=== PATIENT | female | born 1975 | race Caucasian/White ===

== ENCOUNTER 2018-06-20 08:26 | Day surgery (SDC) | payer OTHER ==
[~2018-06-20] VITALS: Ht 172.7 cm; Wt 92.5 kg
[~2018-06-20 08:26] MED LIST: GLYCOPYRROLATE INJ 0.2 MG/ML 2 ML VIAL As Ordered ONE; KETOROLAC 60 MG/2 ML VIAL (J1885) As Ordered ONE; LIDOCAINE 2% INJ 100 MG/5 ML SDV (FOR ANES.) As Ordered ONE; LR 1,000 ML IV ONE; MIDAZOLAM INJ 2 MG/2 ML VIAL (J2250) As Ordered ONE; NEOSTIGMINE 10 MG/10 ML VIAL (J2710) As Ordered ONE; ONDANSETRON 4MG/2ML VIAL (J2405) As Ordered ONE; PROPOFOL 200 MG/20 ML VIAL As Ordered ONE; ROCURONIUM BROMIDE 50 MG/5 ML VIAL As Ordered ONE; dexameTHASONE 4 MG/ML 1ML VIAL (J1100) As Ordered ONE; fentaNYL 100 MCG/2 ML INJECTION (J3010) As Ordered ONE
[2018-06-20 08:56] LABS: HEMATOCRIT 37.1 % (36.0-47.0); HEMOGLOBIN 11.4 g/dl (12.0-15.5); MEAN CORPUSCULAR HEMOGLOBIN 23.9 pg (27.0-33.0); MEAN CORPUSCULAR HGB CONC 30.7 g/dl (32.0-36.5); MEAN CORPUSCULAR VOLUME 77.8 fl (80.0-96.0); PLATELET COUNT, AUTOMATED 262 10^3/uL (150-450); RED BLOOD COUNT 4.77 10^6/uL (4.00-5.40); WHITE BLOOD COUNT 6.9 10^3/uL (4.0-10.0)
[2018-06-20] MEDS ORDERED: HYDROmorphone HCL 2 MG/ML 1ML VIAL (J1170) As Ordered ONE (09:02)
[2018-06-20] MEDS ORDERED: SCOPOLAMINE 1MG TRANSDERMAL PATCH As Ordered ONE (09:12)
[2018-06-20] MEDS ORDERED: SCOPOLAMINE 1MG TRANSDERMAL PATCH TOP ONE (09:15)
[2018-06-20 09:17] LABS: URINE PREG TEST NEGATIVE (NEGATIVE)
[2018-06-20] MEDS ORDERED: ROCURONIUM BROMIDE 50 MG/5 ML VIAL As Ordered ONE (12:24)
[2018-06-20] MEDS ORDERED: ONDANSETRON 4MG/2ML VIAL (J2405) IV PRN (13:45)
[2018-06-20] MEDS ORDERED: EPIDURAL/PCA KEYS XX PRN (13:45)
[2018-06-20] MEDS ORDERED: IBUPROFEN 600 MG TAB PO PRN ×2 (13:45→19:00)
[2018-06-20] MEDS ORDERED: fentaNYL 100 MCG/2 ML INJECTION (J3010) IV PRN (13:45)
[2018-06-20] MEDS ORDERED: NALOXONE INJ 0.4 MG/1 ML VIAL (J2310) IV PRN (13:45)
[2018-06-20] MEDS ORDERED: MORPHINE 1MG/ML IN 0.9% NACL 100ML IV BAG IV PRN (13:45)
[2018-06-20] MEDS ORDERED: diphenhydrAMINE INJ 50MG/ML VIAL (J1200) IV PRN (13:45)
[2018-06-20] MEDS ORDERED: NALBUPHINE HCL 10 MG/ML AMP (J2300) IV PRN (13:45)
[2018-06-20] MEDS ORDERED: NORCO, ANEXSIA 5/325MG TABLET (HYDROcodone/ACETAMINOPHEN) PO PRN (13:45)
[2018-06-20] MEDS ORDERED: NALOXONE INJ 0.4 MG/1 ML VIAL (J2310) IV SCH (15:30)
[2018-06-20 15:35] VITALS: BP 135/103
[2018-06-20 16:00] VITALS: BP 160/99
[2018-06-20 16:30] VITALS: BP 142/96
[2018-06-20 17:30] VITALS: BP 152/96
[2018-06-20 18:30] VITALS: BP 146/92
[2018-06-20] MEDS: LR 1,000 ML IV SCH (19:47)
[2018-06-20 22:00] VITALS: BP 149/99
[2018-06-21 01:00] VITALS: BP 150/92
[2018-06-21] MEDS ORDERED: PROMETHAZINE 25 MG TAB PO ONE (01:30)
[2018-06-21 02:30] VITALS: BP 156/96
[2018-06-21] MEDS ORDERED: PROMETHAZINE INJ 25 MG/ML VIAL (J2550) IV ONE (03:00)
[2018-06-21] MEDS: LR 1,000 ML IV SCH (03:45)
[2018-06-21] MEDS ORDERED: NORCO, ANEXSIA 5/325MG TABLET (HYDROcodone/ACETAMINOPHEN) PO PRN (06:00)
[2018-06-21 06:15] VITALS: BP 166/85
[2018-06-21 08:00] VITALS: BP 134/91
[2018-06-21] MEDS ORDERED: NORC1TAB7 PO (09:31)
[2018-06-21] MEDS ORDERED: ADVI100T PO (09:31)
--- NOTE | 2018-06-21 17:13 | RO ---
DATE OF PROCEDURE: 06/20/2018 PREOPERATIVE DIAGNOSIS: Bleeding and pain. POSTOPERATIVE DIAGNOSIS: Bleeding and pain. Fibroids. The uterus weighed 238 grams in the operating room. PROCEDURE: Laparoscopic-assisted vaginal hysterectomy with bilateral salpingo-oophorectomy. SURGEON: Dr. Elsa Ambrocio BUS DRIVER: Ruma Tillman ANESTHESIA: General endotracheal anesthesia. DESCRIPTION OF PROCEDURE: Shayla was brought to the operating room where sufficient general endotracheal anesthesia was induced, and she was prepped, draped and positioned in the usual sterile fashion with the uterine manipulator placed after the uterus had been sounded to 10 and, of course, the Velasquez with the ability to backfill placed. Attention was then turned to the abdomen. A transverse semilunar incision was made below the umbilicus. Sharp and blunt dissection were continued through the subcutaneous tissues to the level of the rectus fascia where a transverse incision was made. The fascia was secured with #0 Vicryl retention sutures. She had a well-developed posterior rectus sheath, so this too was secured with the #0 Vicryl retention sutures, and the peritoneum was entered under direct visualization in an open laparoscopic technique with the Gretchen cannula then placed and secured with the #0 Vicryl retention sutures and CO2 insufflation then begun. After adequate CO2 insufflation, the peritoneal cavity was visualized. There were normal shiny peritoneal surfaces throughout. There was no excrescence, ascites, nor exudate. There were some adhesions on the left side, which are pictured, and these were taken down with the cold scissors. With that and Trendelenburg, the intestines were mobilized out of the way, and the uterine manipulator used to elevate the uterus and then the Enseal articulating dissector was used through the operative port of the laparoscope to isolate, cauterize, and transect the infundibulopelvic ligament, starting first on the left side, then going to the right. We carefully worked our way through the ovarian pedicles to the round ligament to carefully transect it. We then used cold scissors to dissect the bladder flap anteriorly and having reached the level of the uterine vasculature, we stopped working laparoscopically and turned our attention to the vaginal portion of the case. We turned off the CO2, removed the laparoscope, etcetera, and, of course, removed the patient from that steep Trendelenburg. Working vaginally, with the uterine manipulator removed, we grasped the cervix with two single-tooth tenacula and made a circumferential incision around the base of the cervix using the scalpel. The cardinal ligaments were isolated, clamped with De Stevens clamps, transected and ligated with #0 Vicryl suture. We then progressed through the uterosacral ligaments, which were held for later reattachment to the cuff and dissected anteriorly to join up with the bladder flap and posteriorly for the posterior reflection of the peritoneum. Then, carefully dissected along the lateral aspect of the uterus until the uterus with the attached ovaries and tubes could be delivered. The uterus was large enough with its fibroids that when we got the ovary down with the uterus, the right ovary, we could not see well, so we just transected the ovary and removed it separate from the uterus. Then, we began to have difficulty seeing the pedicle and we started to transect the uterus, but as we were transecting, it delivered through the vaginal cuff and we were able to partially Doderlein it and complete the rest of the dissection. So, the uterus with that partial transection, which did confirm the diagnosis of fibroid, and the attached tubes, and the attached left ovary were sent to pathology. We then carefully examined our pedicles and had good hemostasis. Angle stitches of #0 Vicryl were taken, the uterosacrals were, of course, reattached to the cuff, and the cuff closed with a running locked stitch of #0 Vicryl with good approximation and hemostasis achieved. Since we had already confirmed good hemostasis, we went ahead and removed the instruments above, closed the fascial incision at the umbilicus with the #0 Vicryl retention sutures, and closed the skin with a subcuticular stitch of #3-0 Vicryl with good approximation and hemostasis achieved at both layers, and, of course, a dry sterile dressing then applied. She was switched out from the Velasquez with the ability to backfill to a regular Velasquez bag, and the procedure ended. Estimated blood loss for the procedure: About 300 mL. Fluid replacement was crystalloid. Complications: None. Specimen: Uterus, ovaries, and tubes, as we already mentioned, the uterus was weighed in the OR and weighed 238 grams. Condition and Disposition: Shayla tolerated the procedure well and was recovering in the recovery room in good condition.
== END 2018-06-21 11:25 | disposition home or self-care (01) ==
LOC: M SDC 08:26 → MERGE 14:45 → M MSPAV 15:23 → M PED 06-21 02:10 → M SDC 06-21 11:25
PROVIDERS: ATTEND Obstetrics & Gynecology
DX: N93.9 Abnormal uterine and vaginal bleeding, unspecified (principal); D25.1 Intramural leiomyoma of uterus; N83.11 Corpus luteum cyst of right ovary; N83.12 Corpus luteum cyst of left ovary; R10.2 Pelvic and perineal pain; G43.909 Migraine, unspecified, not intractable, without status migrainosus
CPT/HCPCS: 36415; 58552; 84703; 85027; 86850; 86900; 86901; 88307; J0690; J1100; J1170; J1885; J2250; J2310; J2405; J2710; J3010

== ENCOUNTER → 2022-01-30 | Outpatient (CLI) | payer OTHER ==
[~2022-01-30] MED LIST changes: +ADVI100T PO; -GLYCOPYRROLATE INJ 0.2 MG/ML 2 ML VIAL As Ordered ONE; -KETOROLAC 60 MG/2 ML VIAL (J1885) As Ordered ONE; -LIDOCAINE 2% INJ 100 MG/5 ML SDV (FOR ANES.) As Ordered ONE; -LR 1,000 ML IV ONE; -MIDAZOLAM INJ 2 MG/2 ML VIAL (J2250) As Ordered ONE; -NEOSTIGMINE 10 MG/10 ML VIAL (J2710) As Ordered ONE; +NORC1TAB7 PO; -ONDANSETRON 4MG/2ML VIAL (J2405) As Ordered ONE; -PROPOFOL 200 MG/20 ML VIAL As Ordered ONE; -ROCURONIUM BROMIDE 50 MG/5 ML VIAL As Ordered ONE; -dexameTHASONE 4 MG/ML 1ML VIAL (J1100) As Ordered ONE; -fentaNYL 100 MCG/2 ML INJECTION (J3010) As Ordered ONE
== END ==
LOC: M EKG 16:19
PROVIDERS: ATTEND Nurse Practitioner Adult Health
DX: I47.1 Supraventricular tachycardia (principal)

== ENCOUNTER → 2022-03-15 | Outpatient (CLI) | payer OTHER | LOC: M CARPUL 09:27 | PROVIDERS: ATTEND Nurse Practitioner Adult Health | DX: I31.39 Other pericardial effusion (noninflammatory) (principal); I35.8 Other nonrheumatic aortic valve disorders; I47.1 Supraventricular tachycardia ==